=== PATIENT | female | born 1995 | race Caucasian/White ===

== ENCOUNTER 2016-10-20 22:04 | Emergency (ER) | payer OTHER ==
[2016-10-20 22:18] VITALS: RESP 16; O2SAT 97
--- NOTE | 2016-10-20 22:34 | CPEKG ---
Heart Rate: 106 RR Interval: 566 P-R Interval: 176 QRSD Interval: 76 QT Interval: 316 QTC Interval: 420 P [place]: 47 QRS [place]: 53 T Wave [place]: 24 EKG Severity - BORDERLINE ECG - EKG Impression: SINUS TACHYCARDIA WITH IRREGULAR RATE 87-120 Electronically Signed By: Enrique Borjas 21-Oct-2016 05:16:56
--- NOTE | 2016-10-20 22:47 | EDPHY ---
H & P Stated Complaint: CP Time Seen by Provider: 10/20/16 22:34 HPI/ROS: CHIEF COMPLAINT: Chest pain x3 weeks HISTORY OF PRESENT ILLNESS: 21-year-old female nonsmoker no oral contraceptives complaining of 3 weeks of left-sided chest pain, described as left-sided, sharp, stabbing, intermittent, worse with deep inspiration. . She was evaluated for same while she was visiting [place] 3 weeks ago, was given breathing treatment however notes that this does not alleviates her symptoms. she was seen at [facility] last week started on oral steroids. She has history of sports induced asthma No history of thromboembolic disorder. REVIEW OF SYSTEMS: A ten point review of systems was performed and is negative with the exception of the items mentioned in the HPI PAST MEDICAL & SURGICAL HISTORY: History of sports induced asthma y SOCIAL HISTORY: nonsmoker. No cocaine. No drug use. FAMILY HISTORY: No Family history of thromboembolic disorder PHYSICAL EXAM (Prior to examination, patient consented to physical exam, hands were washed and my usual and customary physical exam procedures followed) 1) GENERAL: Well-developed, well-nourished, alert and oriented. Appears to be in no acute distress. 2) HEAD: Normocephalic, atraumatic 3) HEENT: Pupils equal, round, reactive to light bilaterally. Sclera anicteric. Nasopharynx, oropharynx, clear, no lesions. 4) NECK: Full range of motion, no meningeal signs. 5) LUNGS: Clear auscultation bilaterally, no wheezes, no rhonchi, no retractions. 6) HEART: Regular rate and rhythm, no murmur, no heave, no gallop. 7) ABDOMEN: No guarding, no rebound, no focal tenderness, negative McBurney's, negative Rico's, negative Rovsing's, negative peritoneal sign, 8) MUSCULOSKELETAL: Moving all extremities, no focal areas of tenderness, no obvious trauma. No peripheral edema or discoloration. 9) BACK: No CVA tenderness, no midline vertebral tenderness, no fluctuance, no step-off, no obvious trauma, no visual or palpable abnormality. 10) SKIN: No rash, no petechiae. 11) Psychiatric: Patient is oriented X 3, there is no agitation. DIFFERENTIAL DIAGNOSIS: In no particular order, including but not limited to myocardial ischemia, pulmonary embolus, chest wall pain, pleural inflammation and pulmonary infectious causes. - Personal History LMP (Females 10-55): 8-14 Days Ago Current Tetanus/Diphtheria Vaccine: Yes Current Tetanus Diphtheria and Acellular Pertussis (TDAP): Yes - Medical/Surgical History Hx Asthma: Yes Hx Chronic Respiratory Disease: No Hx Diabetes: No Hx Cardiac Disease: No Hx Renal Disease: No Hx Cirrhosis: No Hx Alcoholism: No Hx HIV/AIDS: No Hx Splenectomy or Spleen Trauma: No Other PMH: asthma - Social History Smoking Status: Never smoked Constitutional: Initial Vital Signs Temperature (C) 36.8 C 10/20/16 22:16 Heart Rate 111 H 10/20/16 22:16 Respiratory Rate 16 10/20/16 22:16 Blood Pressure 147/96 H 10/20/16 22:16 O2 Sat (%) 97 10/20/16 22:16 O2 Delivery Mode Room Air Allergies/Adverse Reactions: No Known Allergies Allergy (Unverified 10/20/16 22:16) Home Medications: Medication Instructions Recorded AZITHROMYCIN [Z-PACK] 500 mg PO DAILY #1 packet 10/21/16 Medical Decision Making - Diagnostics Imaging: Chest 2 view, PA and lateral. History: Chest pain Findings: Heart size is within normal limits. Pulmonary vascularity is normal. The lungs are clear of acute consolidation. Minimal peribronchial cuffing is seen bilaterally. No evidence for pleural effusion. No significant osseous abnormality. Impression: Possible minimal bronchitis. No other findings for acute cardiopulmonary abnormality. Dictated By: Santos Cheatham MD Images reviewed by myself ED Course/Re-evaluation: Re-evaluation most recently at 12:20 a.m.: She is breathing comfortably, heart rate in the low 90s. I discussed her imaging and diagnostic results with her. Given the longevity of her symptoms, I think a trial of antibiotics is indicated. She is currently on a regimen of prednisone which I recommend she complete. Doubt [place] in presence of normal troponin, sinus rhythm on EKG, lack of personal or familial risk factors. Doubt PE in the presence of normal pulmonary embolus, lack of tobacco use, lack of exogenous estrogen use. We discussed possibility of pleurisy. Discussed ibuprofen use. Usual and customary chest precautions provided. - Data Points Laboratory Results: Laboratory Results 10/20/16 22:51 10/20/16 22:51 10/20/16 22:51 WBC 14.81 H 10^3/uL (3.80-9.50) RBC 5.10 10^6/uL (4.18-5.33) Hgb 14.5 g/dL (12.6-16.3) Hct 42.9 % (38.0-47.0) MCV 84.1 fL (81.5-99.8) MCH 28.4 pg (27.9-34.1) MCHC 33.8 g/dL (32.4-36.7) RDW 13.1 % (11.5-15.2) Plt Count 355 10^3/uL (150-400) MPV 9.9 fL (8.7-11.7) Neut % (Auto) 84.3 H % (39.3-74.2) Lymph % (Auto) 10.4 L % (15.0-45.0) [place] % (Auto) 4.7 % (4.5-13.0) Eos % (Auto) 0.0 L % (0.6-7.6) Baso % (Auto) 0.2 L % (0.3-1.7) Nucleat RBC Rel Count 0.0 % (0.0-0.2) Absolute Neuts (auto) 12.49 H 10^3/uL (1.70-6.50) Absolute Lymphs (auto) 1.54 10^3/uL (1.00-3.00) Absolute Monos (auto) 0.69 10^3/uL (0.30-0.80) Absolute Eos (auto) 0.00 L 10^3/uL (0.03-0.40) Absolute Basos (auto) 0.03 10^3/uL (0.02-0.10) Absolute Nucleated RBC 0.00 10^3/uL (0-0.01) Immature Gran % 0.4 % (0.0-1.1) Immature Gran # 0.06 10^3/uL (0.00-0.10) D-Dimer < 0.27 ug/mLFEU (0.00-0.50) Sodium 140 mEq/L (134-144) Potassium 4.4 mEq/L (3.5-5.2) Chloride 101 mEq/L (97-110) Carbon Dioxide 25 mEq/l (22-31) Anion Gap 14 mEq/L (8-16) BUN 13 mg/dL (7-23) Creatinine 0.8 mg/dL (0.6-1.0) Estimated GFR > 60 Glucose 106 H mg/dL (70-100) Calcium 10.1 mg/dL (8.5-10.4) Troponin I < 0.012 ng/mL (0-0.034) Beta HCG, Qual NEGATIVE Departure - Departure Disposition: Home, Routine, Self-Care Clinical Impression: Bronchitis, Pleurisy Chest pain Qualifiers: Chest pain type: other chest pain Qualifier Code: (R07.89) Other chest pain Condition: Good Instructions: Chest Pain (ED), Acute Bronchitis (ED), Pleurisy (ED) Additional Instructions: Seek medical attention if you develop new or worsening chest pain, if you develop new or worsening shortness of breath, or any other symptoms that concern you. Referrals: [facility] Student [facility] [Outside] - 1-2 days without fail Stand Alone Forms: School Excuse Prescriptions: AZITHROMYCIN [Z-PACK] 500 mg PO DAILY #1 packet
[2016-10-20 23:07] LABS: % IMMATURE GRANULYOCYTES 0.4 % (0.0-1.1); ABSOLUTE IMMATURE GRANULOCYTES 0.06 10^3/uL (0.00-0.10); ADD DIFF? NO; ADD MORPH? NO; ADD SCAN? NO; ATYPICAL LYMPHOCYTE FLAG 0 (0-99); FRAGMENT RBC FLAG 0 (0-99); HEMATOCRIT 42.9 % (38.0-47.0); HEMOGLOBIN 14.5 g/dL (12.6-16.3); LEFT SHIFT FLG 0 (0-99); LIPEMIA HEMOLYSIS FLAG 90 (0-99); MEAN CELL HEMOGLOBIN 28.4 pg (27.9-34.1); MEAN CELL HEMOGLOBIN CONCENTR. 33.8 g/dL (32.4-36.7); MEAN CELL VOLUME 84.1 fL (81.5-99.8); MEAN PLATELET VOLUME 9.9 fL (8.7-11.7); PLATELET CLUMPS FLAG 0 (0-99); PLATELET COUNT 355 10^3/uL (150-400); RED CELL DISTRIBUTION WIDTH 13.1 % (11.5-15.2)
--- NOTE | 2016-10-20 23:12 | DX ---
Chest 2 view, PA and lateral. History: Chest pain Findings: Heart size is within normal limits. Pulmonary vascularity is normal. The lungs are clear of acute consolidation. Minimal peribronchial cuffing is seen bilaterally. No evidence for pleural effu isaiah. No significant osseous abnormality. Impression: Possible minimal bronchitis. No other findings for acute cardiopulmonary abnormality.
[2016-10-20 23:16] LABS: ANION GAP 14 mEq/L (8-16); CALCIUM 10.1 mg/dL (8.5-10.4); CARBON DIOXIDE 25 mEq/l (22-31); CHLORIDE 101 mEq/L (97-110); CREATININE 0.8 mg/dL (0.6-1.0); GLOMERULAR FILTRATION RATE > 60; GLUCOSE 106 mg/dL (70-100); POTASSIUM 4.4 mEq/L (3.5-5.2); SODIUM 140 mEq/L (134-144)
[2016-10-20 23:28] LABS: TROPONIN I < 0.012 ng/mL (0-0.034)
[2016-10-21] MEDS ORDERED: AZITHROMYCIN 250 MG TAB PO ONE (00:51)
[2016-10-21 01:04] VITALS: BP 128/67; PULSE 78; TEMP 98.1
== END 2016-10-21 01:04 | disposition home or self-care (01) ==
DX: J20.9 Acute bronchitis, unspecified (principal); R09.1 Pleurisy; J45.909 Unspecified asthma, uncomplicated

== ENCOUNTER 2016-11-30 17:57 | Emergency (ER) | payer OTHER ==
[2016-11-30 18:03] VITALS: TEMP 97.9
[2016-11-30] MEDS ORDERED: IPRATROPIUM/ALBUTEROL 3 ML DEYVIAL IH ONE (18:13)
--- NOTE | 2016-11-30 18:20 | EDPHY ---
H & P Stated Complaint: seen end of sep for sob/dx bronchitis/rx z pack/hx asthma/sob not better HPI/ROS: Chief complaint: Shortness of breath History of present illness: This is a 21-year-old female who presents to the emergency department for shortness of breath. Patient has a history of asthma, however she states she has never been hospitalized or needed advanced airway management for the asthma. Patient reports she has been short of breath for the last 3 months. She reports when she had the onset of trouble breathing 3 months ago she had an upper respiratory tract infection and then she was then diagnosed with bronchitis. She was treated with a Z-Dane. She states throughout all of this she has had this persistent shortness of breath. She feels it is getting worse, today while walking the class she felt completely out of breath. She denies associated signs or symptoms including no cough, no chest pain fever or cold symptoms, no pain or swelling in the legs. Review of systems: A 10 point review of systems was obtained and other than described above was negative - Personal History LMP (Females 10-55): 22-28 Days Ago Current Tetanus/Diphtheria Vaccine: Yes - Medical/Surgical History Hx Asthma: Yes Hx Chronic Respiratory Disease: No Hx Diabetes: No Hx Cardiac Disease: No Hx Renal Disease: No Hx Cirrhosis: No Hx Alcoholism: No Hx HIV/AIDS: No Hx Splenectomy or Spleen Trauma: No Other PMH: asthma - Social History Smoking Status: Never smoked - Physical Exam Exam: General Appearance: Alert, nontoxic. Eyes: Pupils equal and round no pallor or injection. ENT, Mouth: Mucous membranes moist. Respiratory: Patient is talking in full sentences. There is no use of accessary muscles. Lungs are clear to auscultation. Cardiovascular: Regular rate and rhythm. Gastrointestinal: Abdomen is soft and non tender, no masses, bowel sounds normal. Neurological: Alert and oriented x4. Strength and sensation intact and symmetrical. Skin: Warm and dry, no rashes. Musculoskeletal: Neck is supple non tender. Extremities are symmetrical, full range of motion. Psychiatric: Patient is oriented X 3, there is no agitation. Constitutional: Initial Vital Signs Temperature (C) 36.6 C 11/30/16 18:01 Heart Rate 86 11/30/16 18:01 Respiratory Rate 20 11/30/16 18:01 Blood Pressure 142/82 H 11/30/16 18:01 O2 Sat (%) 98 11/30/16 18:01 O2 Delivery Mode Room Air Allergies/Adverse Reactions: No Known Allergies Allergy (Verified 11/30/16 17:59) Home Medications: Medication Instructions Recorded Albuterol 5 mg/ml INH 11/30/16 Anxiety Med 11/30/16 BENADRYL 11/30/16 Combivent Respimat Inhal [place](*) 11/30/16 predniSONE 40 mg PO DAILY 3 Days 11/30/16 Medical Decision Making - Diagnostics Imaging: Chest x-ray unremarkable ED Course/Re-evaluation: Patient seen under the supervision of my primary supervising physician Dr. Maddison Menjivar. Patient presents to the emergency department for shortness of breath. Patient states she has been short of breath for the last 3 months. On presentation she is nontoxic. Afebrile and vital signs are stable. Physical exam is benign. Chest x-ray and EKG unremarkable. I am concerned for a problem with her asthma. She has been treated with a DuoNeb. Asked to continue her home albuterol. I will place her on a short course of prednisone. She is asked to follow up with primary care doctor determine if she needs more aggressive treatment for her asthma. Home care is discussed. Return precautions are given. Patient voiced understanding and agreement with plan. Differential Diagnosis: Included but not limited to reactive airway disease, pulmonary infections such as bronchitis and pneumonia, pneumothorax, cardiac dysrhythmias, unlikely ACS or PE-patient is perc negative - Data Points Medications Given: Discontinued Medications Albuterol/Ipratropium (Duoneb) 3 ml IH EDNOW ONE Stop: 11/30/16 18:14 Last Admin: 11/30/16 18:18 Dose: 3 ml Prednisone (Prednisone) 40 mg PO EDNOW ONE Stop: 11/30/16 19:14 Last Admin: 11/30/16 19:39 Dose: 40 mg Departure - Departure Disposition: Home, Routine, Self-Care Clinical Impression: Dyspnea Qualifiers: Dyspnea type: unspecified Qualified Code(s): R06.00 - Dyspnea, unspecified Condition: Good Instructions: Dyspnea (ED) Additional Instructions: Follow-up with a primary care doctor this week for recheck If symptoms worsen or new symptoms develop return to the emergency department for recheck Referrals: NONE *PRIMARY CARE P,. [Primary Care Provider] - As per Instructions [facility],. [Clinic] - As per Instructions Wilton Guzman MD [Medical Doctor] - As per Instructions Prescriptions: predniSONE 40 mg PO DAILY 3 Days
--- NOTE | 2016-11-30 18:42 | CPEKG ---
Heart Rate: 81 RR Interval: 741 P-R Interval: 152 QRSD Interval: 84 QT Interval: 352 QTC Interval: 409 P [place]: 19 QRS [place]: 60 T Wave [place]: 31 EKG Severity - NORMAL ECG - EKG Impression: SINUS RHYTHM Electronically Signed By: Maddison Menjivar 30-Nov-2016 21:20:08
[2016-11-30] MEDS ORDERED: predniSONE 20 MG TAB PO ONE (19:13)
[2016-11-30 19:40] VITALS: BP 120/65; PULSE 82; RESP 16; O2SAT 95
== END 2016-11-30 19:40 | disposition home or self-care (01) ==
DX: R06.00 Dyspnea, unspecified (principal); J45.909 Unspecified asthma, uncomplicated

== ENCOUNTER 2017-11-22 23:51 | Observation (INO) | payer OTHER ==
[2017-11-23] MEDS ORDERED: ONDANSETRON 4 MG/2 ML VIAL ONE ×2 (00:16→03:36)
[2017-11-23] MEDS ORDERED: NS 1,000 ML IV ONE ×2 (00:20→01:06)
[2017-11-23] MEDS ORDERED: FAMOTIDINE 20 MG/2 ML SDV IVP ONE (00:20)
[2017-11-23] MEDS ORDERED: ONDANSETRON 4 MG/2 ML VIAL IVP ONE (00:20)
[2017-11-23] MEDS ORDERED: PROMETHAZINE HCL 25 MG/ML INJ IVP ONE (00:20)
--- NOTE | 2017-11-23 00:20 | EDPHY ---
General - History Smoking Status: Never smoked Time Seen by Provider: 11/23/17 00:12 Narrative: CHIEF COMPLAINT: nausea, vomiting, abdominal pain HISTORY OF PRESENT ILLNESS: patient complains of sudden onset of nausea, vomiting and abdominal pain. Symptoms started at 2pm today. This was 1 hr after eating a meal. Her abdominal pain is generalized. It is moderate to severe until she vomits, and that it improves. She has had multiple episodes of vomiting not tolerating any liquids at this point. She has not attempted any solids. No bloody emesis. No constipation. No diarrhea. No fever. No urinary complaints. No headache, neck pain or stiffness. No trauma or injury. No other associated complaints or modifying factors. REVIEW OF SYSTEMS: Ten systems reviewed and are negative unless otherwise noted in the HPI PCP: Dr. Simpson [facility] SPECIALISTS: None PAST MEDICAL HISTORY: Anxiety, asthma PAST SURGICAL HISTORY: No recent surgeries. No abdominal surgeries SOCIAL HISTORY: Nonsmoker. Occasional alcohol. Denies illicit substance use. [employer] student. FAMILY HISTORY: Noncontributory EXAMINATION General Appearance: Alert, no distress, smiling Head: normocephalic, atraumatic Eyes: Pupils equal and round, no conjunctival pallor or injection ENT, Mouth: Mucous membranes dry. Airway is widely patent. Neck: Normal inspection, supple, non-tender Respiratory: Lungs are clear to auscultation Cardiovascular: Regular rate and rhythm. No murmur Gastrointestinal: Abdomen is soft and nontender. Bowel sounds are symmetric in all 4 quadrants. No tympany rigidity. No guarding. No CVA tenderness. Benign abdominal examination. Back: non-tender, no bony abnormalities Neurological: A&O, nonfocal, normal gait Skin: Warm and dry, no rash. No petechiae or purpura Extremities: Nontender, no pedal edema Psychiatric: Mood and affect normal DIFFERENTIAL DIAGNOSES: Including but not limited to gastritis, pancreatitis, cholecystitis, cholelithiasis, diverticulitis, appendicitis, gastroenteritis MDM: 12:20 a.m. Acute nausea and vomiting and abdominal pain with benign abdominal examination. Her vital signs are within normal limits. She is smiling, laughing and in no acute distress. I feel she is likely a viral gastritis without complication. She does appear to be mildly dehydrated clinically, thus I have ordered IV fluid. I have also ordered IV emetics and IV Pepcid. Laboratory studies are pending. 12:40 a.m. Patient re-evaluated. Pain has improved but not resolved. Still having some lower and epigastric abdominal pain. Nausea significantly improved. 12:55 a.m. Chemistry is unremarkable. LFTs within normal limits. Lipase is normal. Urinalysis and CBC pending. 1:10 a.m. At this time I have discussed the case with Dr. Marquez. He will assume care the patient. Please see his note for further care and disposition. SUPERVISION: Patient was independently examined, but I discussed the case with my secondary supervising physician Dr. Marquez ([facility]) Medical Decision Makin:20 p.m. I evaluated the patient. She does complain of abdominal pain primarily on the right lower quadrant. No overt tenderness. I will order CT scan concern however elevated white blood cell count. 2:00 a.m. I discussed the case with Dr. Justine Adhikari who will come to evaluate the patient. (Jerad Marquez) - Objective Vital Signs: Initial Vital Signs Temperature (C) 36.8 C 11/23/17 00:01 Heart Rate 97 11/23/17 00:01 Respiratory Rate 16 11/23/17 00:01 Blood Pressure 137/91 H 11/23/17 00:01 O2 Sat (%) 96 11/23/17 00:01 O2 Delivery Mode Room Air Allergies/Adverse Reactions: No Known Allergies Allergy (Verified 11/30/16 17:59) Home Medications: Medication Instructions Recorded Albuterol 5 mg/ml INH 11/30/16 Combivent Respimat Inhal [place](*) 11/30/16 Celexa 11/23/17 ZYRTEC 11/23/17 Laboratory Results: Laboratory Results 11/23/17 00:15 11/23/17 00:15 11/23/17 11/23/17 11/23/17 01:00 00:15 00:15 WBC RBC Hgb Hct MCV MCH MCHC RDW Plt Count MPV Neut % (Auto) Lymph % (Auto) [place] % (Auto) Eos % (Auto) Baso % (Auto) Nucleat RBC Rel Count Absolute Neuts (auto) Absolute Lymphs (auto) Absolute Monos (auto) Absolute Eos (auto) Absolute Basos (auto) Absolute Nucleated RBC Immature Gran % Immature Gran # Sodium 144 mEq/L mEq/L (135-145) Potassium 4.2 mEq/L mEq/L (3.5-5.2) Chloride 104 mEq/L mEq/L (97-110) Carbon Dioxide 25 mEq/l mEq/l (22-31) Anion Gap 15 mEq/L mEq/L (8-16) BUN 11 mg/dL mg/dL (7-23) Creatinine 0.7 mg/dL mg/dL (0.6-1.0) Estimated GFR > 60 Glucose 106 mg/dL H mg/dL (70-100) Calcium 9.7 mg/dL mg/dL (8.5-10.4) Total Bilirubin 0.6 mg/dL mg/dL (0.1-1.4) Conjugated Bilirubin 0.2 mg/dL mg/dL (0.0-0.5) Unconjugated Bilirubin 0.4 mg/dL mg/dL (0.0-1.1) AST 22 IU/L IU/L (14-46) ALT 32 IU/L IU/L (9-52) Alkaline Phosphatase 100 IU/L IU/L (38-126) Total Protein 8.1 g/dL g/dL (6.3-8.2) Albumin 4.8 g/dL g/dL (3.5-5.0) Lipase 85 IU/L IU/L (23-300) Beta HCG, Qual NEGATIVE Urine Color YELLOW Urine Appearance MODERATELY TURBID Urine pH 7.0 (5.0-7.5) Ur Specific [place] 1.021 (1.002-1.030) Urine Protein NEGATIVE (NEGATIVE) Urine Ketones TRACE H (NEGATIVE) Urine Blood NEGATIVE (NEGATIVE) Urine Nitrate NEGATIVE (NEGATIVE) Urine Bilirubin NEGATIVE (NEGATIVE) Urine Urobilinogen NEGATIVE EU EU (0.2-1.0) Ur Leukocyte Esterase NEGATIVE (NEGATIVE) Urine RBC Pending Urine WBC Pending Ur Epithelial Cells Pending Urine Glucose NEGATIVE (NEGATIVE) 11/23/17 00:15 WBC 20.12 10^3/uL H 10^3/uL (3.80-9.50) RBC 5.25 10^6/uL 10^6/uL (4.18-5.33) Hgb 15.1 g/dL g/dL (12.6-16.3) Hct 44.0 % % (38.0-47.0) MCV 83.8 fL fL (81.5-99.8) MCH 28.8 pg pg (27.9-34.1) MCHC 34.3 g/dL g/dL (32.4-36.7) RDW 13.2 % % (11.5-15.2) Plt Count 361 10^3/uL 10^3/uL (150-400) MPV 10.5 fL fL (8.7-11.7) Neut % (Auto) 88.6 % H % (39.3-74.2) Lymph % (Auto) 7.1 % L % (15.0-45.0) [place] % (Auto) 3.6 % L % (4.5-13.0) Eos % (Auto) 0.0 % L % (0.6-7.6) Baso % (Auto) 0.3 % % (0.3-1.7) Nucleat RBC Rel Count 0.0 % % (0.0-0.2) Absolute Neuts (auto) 17.79 10^3/uL H 10^3/uL (1.70-6.50) Absolute Lymphs (auto) 1.43 10^3/uL 10^3/uL (1.00-3.00) Absolute Monos (auto) 0.73 10^3/uL 10^3/uL (0.30-0.80) Absolute Eos (auto) 0.01 10^3/uL L 10^3/uL (0.03-0.40) Absolute Basos (auto) 0.07 10^3/uL 10^3/uL (0.02-0.10) Absolute Nucleated RBC 0.00 10^3/uL 10^3/uL (0-0.01) Immature Gran % 0.4 % % (0.0-1.1) Immature Gran # 0.09 10^3/uL 10^3/uL (0.00-0.10) Sodium Potassium Chloride Carbon Dioxide Anion Gap BUN Creatinine Estimated GFR Glucose Calcium Total Bilirubin Conjugated Bilirubin Unconjugated Bilirubin AST ALT Alkaline Phosphatase Total Protein Albumin Lipase Beta HCG, Qual Urine Color Urine Appearance Urine pH Ur Specific [place] Urine Protein Urine Ketones Urine Blood Urine Nitrate Urine Bilirubin Urine Urobilinogen Ur Leukocyte Esterase Urine RBC Urine WBC Ur Epithelial Cells Urine Glucose Medications Given: Discontinued Medications Famotidine (Pepcid) 20 mg IVP EDNOW ONE Stop: 11/23/17 00:21 Last Admin: 11/23/17 00:27 Dose: 20 mg Sodium Chloride (Ns) 1,000 mls @ 0 mls/hr IV EDNOW ONE; Wide Open PRN Reason: Protocol Stop: 11/23/17 00:21 Last Admin: 11/23/17 00:26 Dose: 1,000 mls Sodium Chloride (Ns) 1,000 mls @ 0 mls/hr IV ONCE ONE PRN Reason: Wide Open Stop: 11/23/17 01:07 Last Admin: 11/23/17 01:08 Dose: 1,000 mls Ondansetron HCl (Zofran) 4 mg IVP EDNOW ONE Stop: 11/23/17 00:21 Last Admin: 11/23/17 00:27 Dose: 4 mg Promethazine HCl (Phenergan) 12.5 mg IVP ONCE ONE Stop: 11/23/17 00:21 Last Admin: 11/23/17 00:27 Dose: 12.5 mg Departure - Departure Disposition: [facility] Inpatient Acute Clinical Impression: Acute appendicitis Nausea & vomiting Qualifiers: Vomiting type: unspecified Vomiting Intractability: non-intractable Qualified Code(s): R11.2 - Nausea with vomiting, unspecified Condition: Fair Additional Instructions: 1. Promethazine by mouth as prescribed as needed 2. Clear liquid diet, advancing slowly as tolerated 3. Follow up with Dr. Simpson within 48 hours for recheck 4. ED precautions for worsening pain, fever, persistent vomiting
[2017-11-23 00:59] LABS: PLATELET COUNT 361 10^3/uL (150-400)
[2017-11-23] MEDS ORDERED: IOPAMIDOL (ISOVUE-300) 100 ML BTL ONE (01:26)
[2017-11-23] MEDS ORDERED: ERTAPENEM 1 GM VIAL IVP ONE (02:06)
[2017-11-23] MEDS ORDERED: BUPIVACAINE 0.5% 10 ML SDV ONE (02:50)
[2017-11-23] MEDS ORDERED: PROPOFOL 200 MG/20 ML VIAL ONE (03:34)
[2017-11-23] MEDS ORDERED: fentaNYL 100 MCG/2 ML INJ ONE ×2 (03:34→04:13)
[2017-11-23] MEDS ORDERED: MIDAZOLAM 2 MG/2 ML VIAL ONE (03:34)
[2017-11-23] MEDS ORDERED: ROCURONIUM 50 MG/5 ML VIAL ONE (03:36)
[2017-11-23] MEDS ORDERED: METOCLOPRAMIDE 10 MG/2 ML VIAL ONE (03:36)
[2017-11-23] MEDS ORDERED: ACETAMINOPHEN 325 MG TAB PO PRN (04:29)
[2017-11-23] MEDS ORDERED: HYDROCODONE/APAP 5/325 TAB PO PRN (04:30)
[2017-11-23] MEDS ORDERED: ONDANSETRON 4 MG/2 ML VIAL IVP PRN (04:30)
--- NOTE | 2017-11-23 04:31 | POSTOPPROG ---
Post Op Note Date of Operation: 11/23/17 Surgeon: Justine Adhikari Anesthesiologist: chau Anesthesia: GET(General Endotracheal) Pre-op Diagnosis: appendicitis Post-op Diagnosis: same Indication: 22 yo with appendicitis Procedure: lap appy Findings: inflamed appendix Inf/Abcess present in the surg proc area at time of surgery?: No Depth: Superfical (Skin SQ) Specimen(s): appendix
[2017-11-23] MEDS ORDERED: LR 500 ML IV PRN (04:38)
[2017-11-23] MEDS ORDERED: fentaNYL 100 MCG/2 ML INJ IVP PRN (04:38)
[2017-11-23] MEDS ORDERED: NALOXONE HCL 0.4 MG/ML INJ IVP PRN (04:38)
[2017-11-23] MEDS ORDERED: ALBUTEROL 3 ML DEYVIAL IH PRN (04:38)
[2017-11-23] MEDS ORDERED: PROMETHAZINE HCL 25 MG/ML INJ IVP PRN (04:38)
--- NOTE | 2017-11-23 04:38 | PDANEPAE ---
ANE Past Medical History - Pulmonary History Hx Asthma/Reactive Airway Disease: Yes Hx Oxygen in Use at Home: No - Endocrine History Hx Diabetes: No ANE Review of Systems Review of Systems: ANE Patient History - Allergies Allergies/Adverse Reactions: No Known Allergies Allergy (Verified 11/30/16 17:59) - Home Medications Home Medications: Albuterol 5 mg/ml INH 11/30/16 [Last Taken Unknown] Combivent Respimat Inhal [place](*) 11/30/16 [Last Taken Unknown] Celexa 11/23/17 [Last Taken Unknown] ZYRTEC 11/23/17 [Last Taken Unknown] - NPO status NPO Since - Liquids (Date): 11/22/17 NPO Since - Liquids (Time): 20:30 NPO Since - Solids (Date): 11/22/17 NPO Since - Solids (Time): 20:30 - Anes Hx Anes Hx: no prior problems - Smoking Hx Smoking Status: Never smoked ANE Labs/Vital Signs - Labs Result Diagrams: 11/23/17 00:15 11/23/17 00:15 - Vital Signs Blood Pressure: 121/76 Heart Rate: 88 Respiratory Rate: 18 O2 Sat (%): 95 Height: 165.1 cm Weight: 72.575 kg ANE Physical Exam - Airway Mallampati Score: Class 1 - ASA Status ASA Status: II, E ANE Anesthesia Plan Anesthesia Plan: general endotracheal anesthesia Urgent/Emergent Case: Alfredo mclain completed preop but documented later for safe timely pt care
--- NOTE | 2017-11-23 04:40 | POSTANESTH ---
Post Anesthetic Evaluation Cardiovascular Status: Normal, Stable Respiratory Status: Normal, Stable Level of Consciousness/Mental Status: Can Participate in Eval Pain Control: Adequate, Prn Tx Ordered Nausea/Vomiting Control: Adequate, Prn Tx Ordered Complications Possibly Related to Anesthesia: None Noted
--- NOTE | 2017-11-23 04:41 | GHP ---
[f rep st] HISTORY AND PHYSICAL DATE OF ADMISSION: 11/23/2017 CHIEF COMPLAINT: Appendicitis. HISTORY OF PRESENT ILLNESS: The patient is a 22-year-old woman who had abdominal pain, and had emesis 3 times in 6 hours. She was concerned she might have the flu and so she presented to the emergency room. A CT scan was performed of her abdomen and pelvis, which showed appendicitis with an appendix measuring 9.5 mm. There was no evidence [place]ation[place] [id number]. She denies sick contacts. She has no other symptoms. PAST MEDICAL HISTORY: None. MEDICATIONS: None. ALLERGIES: No known drug allergies. SOCIAL HISTORY: She is a student at . She denies tobacco use. FAMILY HISTORY: Noncontributory. REVIEW OF SYSTEMS: 10-point review of systems negative. PHYSICAL EXAM: Pleasant, overweight, well-groomed woman. Friend is at bedside. HEENT: Normocephalic. No gross hearing deficits. Mucous membranes moist. Pupils equal and round. No scleral icterus. LUNGS: Clear to auscultation bilaterally. No increased work of breathing. CARDIAC: Regular rate. ABDOMEN: Bowel sounds present. Her abdomen feels warm to the touch. She is soft. She is tender in the right lower quadrant. SKIN: Warm and dry. PSYCH: Mood and affect normal. RESULTS REVIEWED: I personally reviewed the results of her CT scan and can see the enlarged appendix. Her test is negative. Her white count was elevated. IMPRESSION/PLAN: The patient is a 22-year-old woman with acute appendicitis. I will take her to the operating room for a laparoscopic appendectomy. The risks and benefits, including, but not limited to, stroke, heart attack, , blood clots, infection, bleeding, damage to surrounding structures, were discussed. She had her questions answered to her satisfaction, signed the informed consent. She will receive [employer] nurseryperson to the OR. /[id number]/MODL MTDD
--- NOTE | 2017-11-23 05:03 | GOP ---
[f rep st] OPERATIVE REPORT DATE OF OPERATION: 11/23/2017 SURGEON: Justine Adhikari MD ANESTHESIA: General. ANESTHESIOLOGIST: Neil Livingston MD. PREOPERATIVE DIAGNOSIS: Acute appendicitis. POSTOPERATIVE DIAGNOSIS: Acute appendicitis. PROCEDURE PERFORMED: Laparoscopic appendectomy. FINDINGS: Inflamed appendix. SPECIMENS: Appendix. ESTIMATED BLOOD LOSS: 5 cc. INDICATIONS: The patient is a 22-year-old woman who had vomiting and abdominal pain. CT scan was performed which showed an acute appendix. DESCRIPTION OF PROCEDURE: Patient was brought into the operating room, placed supine on the table, and general anesthesia was administered. Her abdomen was prepped and draped in the usual sterile fashion. I infiltrated all sites with 0.5% Marcaine prior to making incision. I made an incision by her umbilicus. I elevated it. I inserted the Veress needle. It passed the hang drop test. Her abdomen insufflated easily to a pressure of 15 mmHg. I placed a 5 mm trocar with a camera at this site. There were no injuries from Veress needle placement. Under direct vision I placed a 5 mm suprapubic trocar and a 10 mm trocar in the left lower quadrant. I elevated her appendix, it was very long. I divided the mesoappendix with the Harmonic Scalpel. I transected the base with an Endo-DEBBIE 45 white load. I placed the appendix in an EndoCatch bag and retrieved it via the 10 mm trocar. Hemostasis was achieved at the staple line as well as at the mesentery. I removed the ports under direct vision and allowed the abdomen to desufflate. I closed the fascia with 0 Vicryl. I closed the skin with 4-0 Monocryl. Dermabond applied. She was awakened in the operating room, extubated, transferred to PACU in stable condition. /[id number]/MODL MTDD
[2017-11-23] MEDS: KETOROLAC 15 MG/1 ML SDV IVP SCH ×2 (05:29→12:40)
[2017-11-23 09:44] VITALS: RESP 16
--- NOTE | 2017-11-23 09:50 | SOAPPROG ---
SOAP Progress Note Assessment/Plan: Assessment/Plan: 22yo F POD #1 s/p laparoscopic appendectomy Pain controlled with toradol Not hungry yet - ok to have regular diet Voiding spontaneously On supplemental O2 - wean prior to DC Dispo: dc likely later today if tolerates diet, pain controlled S: Slept well. Minor discomfort in the RLQ. Has not passed gas yet O: Well developed, overweight woman laying in bed with mother at bedside. RESP: On O2 via nasal canula. No increased work of breathing. ABD: Hyperactive BS. Soft. Tender in left and right lower quadrants to deep palpation, No guarding. Incisions are clean, dry and intact. Objective: Vital Signs Temp Pulse Resp BP Pulse Ox 36.7 C 73 15 98/60 L 97 11/23/17 07:10 11/23/17 07:10 11/23/17 07:10 11/23/17 07:10 11/23/17 07:10 ICD10 Worksheet Patient Problems: Problems Problem Status Onset Acute appendicitis Acute Nausea & vomiting Acute
[2017-11-23] MEDS ORDERED: FLU VACC QS 2017-18 (3YR+)/PF 0.5 ML SYR (FLUARIX QUAD) IM ONE (12:54)
[2017-11-23 17:27] VITALS: BP 106/72; PULSE 72; TEMP 97.6; O2SAT 96
--- NOTE | 2017-11-23 19:25 | GDS ---
[f rep st] DISCHARGE SUMMARY ADMITTING DIAGNOSIS: Acute appendicitis. SECONDARY DIAGNOSES: None. HISTORY OF PRESENT ILLNESS: The patient is a 22-year-old woman who developed abdominal pain and emes is. She presented to the emergency room. CT scan showed enlargement of the appendix, measuring 9.5 mm, with leukocytosis. She was admitted for surgical intervention, pain control, and observation. HOSPITAL COURSE: She was taken to the operating room by Dr. Justine Adhikari on 11/23/2017 for laparoscop ic appendectomy. The surgery was uncomplicated. Pathology is pending. Following surgery, her pain was well controlled with oral pain medications. She was tolerating a regular diet, ambulating indepe ndently, and ready for discharge. DISCHARGE CONDITION: She is being discharged home in stable condition. Pain is well controlled, prabhjot erating regular diet, ambulating independently. DISCHARGE INSTRUCTIONS AND FOLLOWUP: She will follow up with Dr. Justine Adhikari or Jacqui ALLEN in 2 we eks. She will avoid heavy lifting, pushing, or pulling greater than 10 pounds for 2 weeks. She may shower tomorrow. She will avoid swimming pools, hot tubs, or bath tubs until her incisions are heale d. Understands to call with worsening symptoms, questions, or concerns. DISCHARGE MEDICATIONS: No new medications were prescribed. She was instructed to take [id number] ter Tylenol and ibuprofen for pain control, and resume home medicines. Please see EMR for further de tails. /[id number]/MODL
== END 2017-11-23 17:20 | disposition home or self-care (01) ==
LOC: UNDOADMOB 11-23 02:05 → FSGY 11-23 02:30 → FOB 11-23 05:10
PROVIDERS: ADMIT Surgery; ATTEND Surgery
PROC: 0DTJ4ZZ Resection of Appendix, Percutaneous Endoscopic Approach (ICD-10-PCS; principal; 2017-11-23 03:00)
DX: K35.80 Unspecified acute appendicitis (principal); E86.9 Volume depletion, unspecified; Z23 Encounter for immunization
CPT/HCPCS: 44970; 74177; 90471; G0378; 96374; G0008; J1335; J1885; J2250; J2405; J2550; J2704; J2765; J3010; Q9967